=== PATIENT | male | born 1965 | race Caucasian/White ===

== ENCOUNTER 2017-06-11 17:21 | Emergency (ER) | payer SELFPAY ==
[~2017-06-11] VITALS: Ht 172.7 cm; Wt 60.0 kg
[2017-06-11 17:22] VITALS: BP 150/89; PULSE 83; RESP 18; TEMP 98.4; O2SAT 98
--- NOTE | 2017-06-11 18:00 | PD ---
Physical Exam Date Seen by Provider: Jun 11, 2017 Time Seen by Provider: 18:00 Narrative 52 year old male presents to the emergency department for evaluation of a dog bite to his left thigh that occurred around 2230 last night. Patient states the dog that attacked him lives where he does. It attacked his dog and then bit him. He reports pain 9/10. He denies any exacerbating or alleviating factors. Mild severity. Data Data Last Documented VS Vital Signs Date Time Temp Pulse Resp B/P (MAP) Pulse Ox O2 Delivery O2 Flow Rate FiO2 06/11/17 18:20 06/11/17 17:22 98.4 83 18 98 Room Air MDM Medical Record Reviewed: Yes Supervised Visit with ABBE: No Narrative Course 52 year old male presents to the emergency department for evaluation of a dog bite to his left thigh that occurred at 2230 last night. Patient was initially seen in triage. Patient was placed in the fast track area. However, before the provider in that area could see him, he became upset and left AMA. Diagnosis Primary Impression: Left against medical advice Additional Impression: Dog bite Qualified Codes: W54.0XXA - Bitten by dog, initial encounter Disposition: 07 AGAINST MEDICAL ADVICE Adry Dixon Jun 11, 2017 18:00
[2017-06-12] MEDS ORDERED: CEPH-460 PO (16:18)
[2017-06-12] MEDS ORDERED: PERC5TAB12 PO (16:19)
== END 2017-06-11 18:38 | disposition left against medical advice (07) ==
LOC: NEPK 17:21
DX: S71.152A Open bite, left thigh, initial encounter (principal); W54.0XXA Bitten by dog, initial encounter
CPT/HCPCS: 99281

== ENCOUNTER 2017-06-11 23:11 | Inpatient (IN) | payer SELFPAY ==
[~2017-06-11] VITALS: Ht 165.1 cm; Wt 65.0 kg
[2017-06-11 23:14] VITALS: BP 128/88; PULSE 76; RESP 16; TEMP 97.7; O2SAT 100
[2017-06-12] VITALS (8 sets, daily range): BP systolic 106–136; BP diastolic 68–88; PULSE 52–72; RESP 16–20; TEMP 97.8–98.1; O2SAT 98–100
[2017-06-12] MEDS ORDERED: PIPERACIL-TAZO 4.5 GM PREMIX 100 ML IV ONE (00:30)
[2017-06-12] MEDS ORDERED: MORPHINE SULFATE 2 MG/ML INJ IV PUSH ONE (00:30)
[2017-06-12 00:59] LABS: AUTOMATED NEUTROPHIL # 3.4 TH/MM3 (1.8-7.7); BASOPHIL % 0.2 % (0.0-2.0); EOSINOPHIL # 0.1 TH/MM3 (0-0.4); EOSINOPHIL % 2.5 % (0.0-4.0); HEMATOCRIT 39.2 % (39.0-51.0); HEMOGLOBIN 13.1 GM/DL (13.0-17.0); LYMPH % 24.4 % (9.0-44.0); LYMPHOCYTE # 1.3 TH/MM3 (1.0-4.8); MEAN CELL VOLUME 99.1 FL (80.0-100.0); MEAN CORPUSCULAR HEMOGLOBIN 33.1 PG (27.0-34.0); MEAN CORPUSCULAR HGB CONC 33.4 % (32.0-36.0); MEAN PLATELET VOLUME 7.4 FL (7.0-11.0); MONO % 9.5 % (0.0-8.0); MONOCYTE # 0.5 TH/MM3 (0-0.9); NEUT % 63.4 % (16.0-70.0); PLATELET COUNT 265 TH/MM3 (150-450); RED BLOOD COUNT 3.96 MIL/MM3 (4.50-5.90); RED CELL DISTRIBUTION WIDTH 16.4 % (11.6-17.2); WHITE BLOOD COUNT 5.3 TH/MM3 (4.0-11.0)
[2017-06-12 01:16] LABS: ALBUMIN 3.7 GM/DL (3.4-5.0); ALT (GPT) 33 U/L (12-78); AST (GOT) 34 U/L (15-37); BICARBONATE 25.6 MEQ/L (21.0-32.0); BLOOD UREA NITROGEN 19 MG/DL (7-18); CALCIUM 7.6 MG/DL (8.5-10.1); CHLORIDE 106 MEQ/L (98-107); CREATININE 0.87 MG/DL (0.60-1.30); GLOMERULAR FILTRATION RATE 92 ML/MIN (>89); GLUCOSE,RANDOM 89 MG/DL (74-106); SODIUM (NA) 139 MEQ/L (136-145)
[2017-06-12 01:18] LABS: ALKALINE PHOSPHATASE 73 U/L (45-117); TOTAL BILIRUBIN ADULT 0.4 MG/DL (0.2-1.0); TOTAL PROTEIN 6.2 GM/DL (6.4-8.2)
--- NOTE | 2017-06-12 01:26 | PD ---
HPI . Left thigh dog bite Chief Complaint: Bite or Sting Time Seen by Provider: 00:20 Travel History International Travel<30 days: No Contact w/Intl Traveler<30days: No Traveled to known affect area: No History of Present Illness HPI 52-year-old male status post dog bite earlier today in his left thigh, provoked , patient was breaking up a fight between his dog and another dog.. All. Odor was present stated that the dog has had his rabies and all immunizations are up- to-date. Patient had local neighbor glue the laceration, noted significant pain large amount of bleeding that appeared to be pulsatile. Patient applied pressure manually followed by a tight pressure bandage with improvement in bleeding. Patient states pain has worsened in the area since the laceration occurred several hours ago, earlier today. Denies any weakness numbness tingling distally. This is an isolated lesion. Patient's tetanus is up-to-date [facility] Past Medical History Narrative Medical Past medical history reviewed Immunizations Current: Yes Tetanus Vaccination: Unknown Influenza Vaccination: No Social History Alcohol Use: No Tobacco Use: Yes Substance Use: No Allergies-Medications (Allergen,Severity, Reaction): Coded Allergies: No Known Allergies (Unverified , 06/11/17) Reported Meds & Prescriptions Reported Meds & Active Scripts Active No Active Prescriptions or Reported Medications Narrative Medication Allergies and medications reviewed Review of Systems Except as stated in HPI: all other systems reviewed are Neg General / Constitutional: No: Fever Eyes: No: Visual changes HENT: No: Headaches Cardiovascular: No: Chest Pain or Discomfort Respiratory: No: Shortness of Breath Gastrointestinal: No: Abdominal Pain Genitourinary: No: Dysuria Musculoskeletal: Positive: Pain Skin: No Rash Neurologic: No: Weakness Psychiatric: No: Depression Endocrine: No: Polydipsia Hematologic/Lymphatic: No: Easy Bruising Physical Exam Narrative GENERAL: Awake alert oriented 3 uncomfortable but in no acute distress SKIN: Warm and dry. Color is normal no diaphoresis cyanosis or pallor HEAD: Atraumatic. Normocephalic. EYES: Pupils equal and round. No scleral icterus. No injection or drainage. ENT: No nasal bleeding or discharge. Mucous membranes pink and moist. NECK: Trachea midline. No JVD. CARDIOVASCULAR: Regular rate and rhythm. RESPIRATORY: No accessory muscle use. Clear to auscultation. Breath sounds equal bilaterally. GASTROINTESTINAL: Abdomen soft, non-tender, nondistended. Hepatic and splenic margins not palpable. MUSCULOSKELETAL: Left medial thigh along distribution of deep vascular structures a dog bite with surrounding tense mass, no pulsatile nature noted. Neurovascular intact distally NEUROLOGICAL: Awake and alert. No obvious cranial nerve deficits. Motor grossly within normal limits. Five out of 5 muscle strength in the arms and legs. Normal speech. PSYCHIATRIC: Appropriate mood and affect; insight and judgment normal. Data Data Last Documented VS Vital Signs Date Time Temp Pulse Resp B/P (MAP) Pulse Ox O2 Delivery O2 Flow Rate FiO2 06/12/17 00:44 65 16 133/78 (96) 98 Room Air 06/11/17 23:14 97.7 Orders Orders Iv Access Insert/Monitor (06/12/17 00:30) Cta Runoff W Iv Contrast W 3d (06/12/17 ) Complete Blood Count With Diff (06/12/17 00:30) Comprehensive Metabolic Panel (06/12/17 00:30) Morphine Inj (Morphine Inj) (06/12/17 00:30) Piperacil-Tazo 4.5 Gm Premix (Zosyn 4.5 (06/12/17 00:30) Iohexol 350 Inj (Omnipaque 350 Inj) (06/12/17 01:41) Type And Screen (06/12/17 01:42) Admit Order (Ed Use Only) (06/12/17 02:08) Labs Laboratory Tests Test 06/12/17 00:47 White Blood Count 5.3 TH/MM3 Red Blood Count 3.96 MIL/MM3 Hemoglobin 13.1 GM/DL Hematocrit 39.2 % Mean Corpuscular Volume 99.1 FL Mean Corpuscular Hemoglobin 33.1 PG Mean Corpuscular Hemoglobin Concent 33.4 % Red Cell Distribution Width 16.4 % Platelet Count 265 TH/MM3 Mean Platelet Volume 7.4 FL Neutrophils (%) (Auto) 63.4 % Lymphocytes (%) (Auto) 24.4 % Monocytes (%) (Auto) 9.5 % Eosinophils (%) (Auto) 2.5 % Basophils (%) (Auto) 0.2 % Neutrophils # (Auto) 3.4 TH/MM3 Lymphocytes # (Auto) 1.3 TH/MM3 Monocytes # (Auto) 0.5 TH/MM3 Eosinophils # (Auto) 0.1 TH/MM3 Basophils # (Auto) 0.0 TH/MM3 CBC Comment DIFF FINAL Differential Comment Blood Urea Nitrogen 19 MG/DL Creatinine 0.87 MG/DL Random Glucose 89 MG/DL Total Protein 6.2 GM/DL Albumin 3.7 GM/DL Calcium Level 7.6 MG/DL Alkaline Phosphatase 73 U/L Aspartate Amino Transf (AST/SGOT) 34 U/L Alanine Aminotransferase (ALT/SGPT) 33 U/L Total Bilirubin 0.4 MG/DL Sodium Level 139 MEQ/L Potassium Level 4.1 MEQ/L Chloride Level 106 MEQ/L Carbon Dioxide Level 25.6 MEQ/L Anion Gap 7 MEQ/L Estimat Glomerular Filtration Rate 92 ML/MIN [facility] Medical Decision Making Medical Screen Exam Complete: Yes Emergency Medical Condition: Yes Medical Record Reviewed: Yes Differential Diagnosis Dogbite left thigh, acute T vascular injury, laceration Narrative Course CTA with runoffs left lower extremity significant for possible left femoral artery injury with extravasation of contrast from the deep femoral vein to superficial wound. Case discussed with Dr. Lima vascular surgeon, patient admitted with compression dressing for evaluation. Diagnosis Primary Impression: Dog bite of thigh Qualified Codes: S71.152D - Open bite, left thigh, subsequent encounter; W54.0XXD - Bitten by dog, subsequent encounter Additional Impression: Injury of femoral artery Qualified Codes: S75.002D - Unspecified injury of femoral artery, left leg, subsequent encounter Admitting Information Admitting Physician Requests: Admit Scripts No Active Prescriptions or Reported Meds Condition: Bigg Prieto MD Jun 12, 2017 01:26
[2017-06-12] MEDS ORDERED: IOHEXOL 350 MG/ML 10 ML VIAL (for RAD DIAG) IVCONTRAST ONE (01:41)
--- NOTE | 2017-06-12 02:45 | RADRPT ---
EXAM DATE/TIME: 06/12/2017 01:17 [facility] COMPARISON: No previous studies available for comparison. INDICATIONS : Dog bite to medial left thigh, evaluate arterial/vascular involvement. IV CONTRAST: 100 cc Omnipaque 350 (iohexol) IV RADIATION DOSE: 2.03 CTDIvol (mGy) MEDICAL HISTORY : None SURGICAL HISTORY : None. ENCOUNTER: Initial ACUITY: 1 day PAIN SCALE: 10/10 LOCATION: Left medial femur TECHNIQUE: Volumetric scanning was performed using a multi-row detector CT scanner. The data was post processed with a variety of visualization algorithms including full volume maximum intensity projection, multi -planar sliding thin slab reformation, curved planar reformation, and surface rendering techniques. Using automated exposure control and adjustment of the mA and/or kV according to patient size, radiat ion dose was kept as low as reasonably achievable to obtain optimal diagnostic quality images. DICO M format image data is available electronically for review and comparison. FINDINGS: ABDOMINAL AORTA: There is some atherosclerotic plaquing throughout the abdominal aorta. There is no evidence of any an eurysmal dilatation. There is no aortic dissection. The celiac artery is patent. There is some focal calcified plaque at the origin of the SMA. However, no focal stenosis is demonstrated. The renal magdy raphael are patent bilaterally. The HI is patent. BIFURCATION: There is atherosclerotic plaquing at the aortic bifurcation RIGHT PELVIS: There is atherosclerotic plaquing involving the common iliac artery without any high-grade stenosis. The external iliac artery is patent. LEFT PELVIS: There is atherosclerotic plaquing involving the common iliac artery without any high-grade stenosis. The external iliac artery is patent. RIGHT THIGH: The superficial femoral and profunda vessels are patent.. LEFT THIGH: The superficial femoral and profunda vessels are patent.. RIGHT KNEE: The distal femoral and popliteal arteries are patent without luminal irregularity. LEFT KNEE: The distal femoral and popliteal arteries are patent without luminal irregularity. RIGHT LEG: The trifurcation is intact. LEFT LEG: The trifurcation is intact. CONCLUSION: 1. There is atherosclerotic plaquing throughout the abdominal aorta. No aneurysmal dilatation. 2. There is atherosclerotic plaquing at the aortic bifurcation with calcified plaques along both comm on iliac arteries. However, no focal high-grade stenosis. 3. Good runoff down both extremities. Rubén Mendiola MD on June 12, 2017 at 2:36 Board Certified Radiologist. This report was verified electronically.
[2017-06-12] MEDS ORDERED: SODIUM CHLOR 0.9% 1000 ML INJ 1,000 ML IV SCH ×2 (09:00→10:52)
[2017-06-12] MEDS ORDERED: AMPICILLIN-SULBACTAM INJ 3 GM in SODIUM CHLORIDE 0.9% INJ 100 ML IV SCH (09:00)
[2017-06-12] MEDS ORDERED: NALOXONE HCL 0.4 MG/ML AMP IV PUSH PRN (11:00)
[2017-06-12] MEDS ORDERED: MORPHINE SULFATE 2 MG/ML INJ IV PUSH PRN (11:00)
[2017-06-12] MEDS ORDERED: SODIUM CHLORIDE 0.9% FLUSH 10 ML FLUSH IV FLUSH PRN (11:00)
[2017-06-12] MEDS ORDERED: Post-op Orders (for Pharmacy) XX ONE (11:00)
[2017-06-12] MEDS ORDERED: ONDANSETRON HCL 4 MG/2 ML VIAL IV PUSH PRN (11:00)
--- NOTE | 2017-06-12 11:27 | MH ---
cc: HERIBERTO ETIENNE MD DATE OF ADMISSION 06/12/2017 ADMITTING PHYSICIAN Heriberto Etienne MD, Vascular Surgery REASON FOR ADMISSION Laceration of the left femoral artery after a dog bite. HISTORY OF PRESENT DISEASE This 52-year-old male was bitten on the left thigh about two days ago after trying to break up fights between the dog's. Allegedly, the dog that bit him had rabies immunization. He did not do much to the wound, but glued it shut for some reason and then suddenly it become red and started bleeding. The patient then came to the emergency room with a bleeding wound. The patient is now admitted for further care and repair of the lacerated femoral artery. PAST MEDICAL HISTORY The patient denies. PAST SURGICAL HISTORY Denies. SOCIAL HISTORY He smokes a pack a day. He states he does not drink. PHYSICAL EXAM Physical examination reveals a 52-year-old male. HEAD, EYES, EARS, NOSE, AND THROAT: Normocephalic. No trauma to the head. Pupils equally reactive. Extraocular muscles intact. NECK: Supple, bilateral carotid pulses. No bruits. CHEST: Clear, bilateral breath sounds. HEART: Regular rhythm. ABDOMEN: Soft. Active bowel sounds. EXTREMITIES: The patient has bilateral femoral, popliteal, dorsalis, and pedis posterior tibial pulses left and right. He has a bandage on the left thigh and he has an excellent popliteal pulse underneath that. The bandage is dry. This will be removed in the operating room. I discussed it with the ER physician as far as the findings are concerned. NEUROLOGIC: Exam reveals the patient has a Mone coma scale of 15 with preserved neurologic exam. The patient underwent CTA which reveals bleeding. ASSESSMENT AND PLAN He will be admitted and will undergo exploration of the wound with possible repair of the tissues but I doubt any injury to the femoral artery. Heriberto CROSS/KEMIL /10:55 AM /11:16 AM [facility] HOSPITALNeymar
[2017-06-12] MEDS ORDERED: LACTATED RINGER'S 1000 ML INJ 1,000 ML IV ONE (12:00)
[2017-06-12] MEDS ORDERED: ROCURONIUM INJ 50 MG/5 ML SYRINGE IV PUSH ONE (12:00)
[2017-06-12] MEDS ORDERED: LIDOCAINE HCL 1% PF 5 ML SYRINGE OTHER ONE (12:00)
[2017-06-12] MEDS ORDERED: PROPOFOL 200 MG/20 ML AMP IV ONE (12:00)
[2017-06-12] MEDS ORDERED: HEPARIN SODIUM - IV 10,000 UNITS/10 ML VIAL ONE (12:27)
[2017-06-12] MEDS ORDERED: LIDOCAINE 0.5%/EPINEPHrine 1:200,000 SOLN 50 ML VIAL ONE (12:27)
[2017-06-12] MEDS ORDERED: ceFAZolin 2 GM PREMIX 50 ML ONE (14:20)
[2017-06-12] MEDS ORDERED: CHLORHEXIDINE GLUCONATE 2 % 1 PACK (2 CLOTHS) TOPICAL PRN (15:15)
[2017-06-12] MEDS ORDERED: METOPROLOL TARTRATE 25 MG TAB PO PRN (15:15)
[2017-06-12] MEDS ORDERED: LACTATED RINGER'S 1000 ML IV PRN (15:15)
[2017-06-12] MEDS ORDERED: POVIDONE IODINE 5% (ANTISEPSIS KIT) 4 APPLICATIONS EACH NARE PRN (15:15)
[2017-06-12] MEDS ORDERED: SODIUM CHLORID 0.9% 500 ML IV PRN (15:15)
[2017-06-12] MEDS ORDERED: SUGAMMADEX SODIUM 200 MG/2 ML VIAL IV PUSH ONE (16:13)
[2017-06-12] MEDS ORDERED: CEPH-460 PO (16:18)
[2017-06-12] MEDS ORDERED: PERC5TAB12 PO (16:19)
[2017-06-12] MEDS ORDERED: DO NOT ADM ANY ANTICOAGULANT DRUGS PRN (16:26)
[2017-06-12] MEDS ORDERED: *morphine SULFATE 4 MG/ML PERIprocedure ONLY ONE (16:53)
[2017-06-12] MEDS ORDERED: ONDANSETRON HCL 4 MG/2 ML VIAL IV PUSH ONE (17:30)
[2017-06-12] MEDS ORDERED: oxyCODONE/ACETAMINOPHEN 5 MG/325 MG TAB PO ONE (17:30)
[2017-06-12] MEDS ORDERED: VANCOMYCIN INJ 1,000 MG in SODIUM CHLOR 0.9% 250 ML INJ 250 ML IV SCH (18:00)
[2017-06-12] MEDS ORDERED: CLINDAMYCIN INJ 600 MG in SODIUM CHLORIDE 0.9% INJ 50 ML IV SCH (20:00)
[2017-06-12] MEDS ORDERED: SODIUM CHLORIDE 0.9% FLUSH 10 ML FLUSH IV FLUSH SCH (21:00)
[2017-06-12] MEDS ORDERED: FAMOTIDINE 20 MG TAB PO SCH (21:00)
--- NOTE | 2017-06-13 07:06 | HHI.DS ---
Discharge Summary Admission Date Jun 12, 2017 at 10:56 Discharge Date: Jun 12, 2017 Admitting Diagnosis Dog bite w/ vascular injury L thigh (1) Dog bite of thigh ICD Codes: S71.159A - Open bite, unspecified thigh, initial encounter; W54.0XXA - Bitten by dog, initial encounter Status: Acute (2) Injury of femoral artery ICD Codes: S75.009A - Unspecified injury of femoral artery, unspecified leg, initial encounter Status: Acute Brief History S/P Trauma: dog bite CBC/BMP: 06/12/17 0047 06/12/17 0047 Significant Findings Laboratory Tests Test 06/12/17 00:47 Red Blood Count 3.96 MIL/MM3 (4.50-5.90) Monocytes (%) (Auto) 9.5 % (0.0-8.0) Blood Urea Nitrogen 19 MG/DL (7-18) Total Protein 6.2 GM/DL (6.4-8.2) Calcium Level 7.6 MG/DL (8.5-10.1) Imaging Last Impressions Aorta w/Runoff CTA 06/12/17 0000 Signed Impressions: Service Date/Time: Monday, June 12, 2017 01:17 - CONCLUSION: 1. There is atherosclerotic plaquing throughout the abdominal aorta. No aneurysmal dilatation. 2. There is atherosclerotic plaquing at the aortic bifurcation with calcified plaques along both common iliac arteries. However, no focal high- grade stenosis. 3. Good runoff down both extremities. Rubén Mendiola MD PE at Discharge GENERAL: 52 year old adult male lying in bed in no acute distress. SKIN: Warm and dry. HEAD: Normocephalic MUSCULOSKELETAL: Extremities without , cyanosis, or edema. LEFT thigh with surgical dressing C/D/I. MAEW, + dorsalis pedis pulses bilaterally, well perfused. NEUROLOGICAL: Awake and alert. Normal speech. Hospital Course [place]: Patient reportedly was bitten by a dog in his left thigh prior to arrival. Attempts at gluing the wound closed were unsuccessful and patient came to ER after the bleeding would not stop. No LOC. INJURIES: LEFT thigh laceration with femoral artery lac PMHx: Tobacco use LEFT thigh laceration with femoral artery lac 06/12: Debridement of left thigh wound and femoral artery repair Wound care: Remove dressing Thursday and wash incision with soap and water. May cover with dry dressing and change daily or leave open to air Pain control Keflex x 10 days Tetanus UTD F/U with Trauma/vascular office in 2 weeks No work until cleared by Dr Lima F/U with PCP in 1 week Patient is clear from Trauma surgery standpoint to safely discharge home. Pt Condition on Discharge: Good Discharge Disposition: Discharge Home Discharge Instructions DIET: Follow Instructions for: As Tolerated, No Restrictions Activities you can perform: Regular-No Restrictions Other Activity Instructions: Patient is not to return to work until he sees me in the office Rissa Elizondo Jun 13, 2017 07:06
--- NOTE | 2017-06-13 14:23 | MP ---
cc: MATT ETIENNE MD DATE OF SURGERY 06/12/2017 PREOPERATIVE DIAGNOSIS Dog bite to the left leg. Injury to the branches of the superficial femoral artery. POSTOPERATIVE DIAGNOSIS Dog bite to the left leg. Injury to the branches of the superficial femoral artery. OPERATIVE PROCEDURE Exploration of the wound, debridement of the wound, ligation of small bleeders and washout with approximation of the wound. SURGEON MD Yudi ANESTHESIA General. ESTIMATED BLOOD LOSS 20 cc. PROCEDURE The patient is prepped and draped in the usual fashion. The wound is now explored. The left medial aspect of the leg has a wound which measures about 2-1/2 to 3 inches in length. This really does not appear to be wound from a dog bite, looks more like a cut. The wound is now debrided by sharply removing with 15 blade the involved skin, about 4 mm laterally and then turning into a fishmouth shape. A large amount of clotted material is removed but there is no major vascular injury. There are several small bleeders which are ligated with 2-0 Vicryl stick ties and also with some cauterization. The area is now irrigated with copious amounts of saline, pulses checked and then skin was approximated with 2-0 Prolene interrupted stitches allowing some drainage. Dressing applied. It should be noted the patient does not have injury to major arteries in the leg but simply branches of arteries and veins. Matt CROSS/BRIGITTE /4:23 PM /2:04 PM
--- NOTE | 2017-06-13 15:27 | EKG ---
Date Performed: 06/12/2017 Time Performed: 13:26:29 PTAGE: 52 years EKG: SINUS BRADYCARDIA BORDERLINE ECG NO PREVIOUS TRACING DOCTOR: Beto Shay Interpretating Date/Time 06/13/2017 15:26:55
== END 2017-06-12 17:39 | disposition home or self-care (01) | DRG 579 ==
LOC: NEPE 23:11 → NEDA 06-12 02:10 → NEDH 06-12 08:24 → OBSVTOIN 06-12 10:56
PROVIDERS: ADMIT Surgery; ATTEND Surgery
PROC: 0HBJXZZ Excision of Left Upper Leg Skin, External Approach (ICD-10-PCS; 2017-06-12)
PROC: 0Y3D0ZZ Control Bleeding in Left Upper Leg, Open Approach (ICD-10-PCS; principal; 2017-06-12 15:18)
DX: S71.152A Open bite, left thigh, initial encounter (principal); S75.012A Minor laceration of femoral artery, left leg, initial encounter; W54.0XXA Bitten by dog, initial encounter; F17.210 Nicotine dependence, cigarettes, uncomplicated
CPT/HCPCS: 75635; 80053; 85025; 86850; 86900; 86901; 93005; 96365; 96375; J0295; J0690; J1644; J2270; J2543; J3010; J7030; J7120; Q9967

== ENCOUNTER 2017-06-25 08:24 | Emergency (ER) | payer SELFPAY ==
[~2017-06-25] VITALS: Ht 172.7 cm; Wt 60.0 kg
[~2017-06-25 08:24] MED LIST: CEPH-460 PO; PERC5TAB12 PO
[2017-06-25 08:28] VITALS: BP 133/84; PULSE 86; RESP 14; TEMP 97.6; O2SAT 99
--- NOTE | 2017-06-25 09:30 | PD ---
HPI Chief Complaint: Skin Problem Time Seen by Provider: 09:07 Travel History International Travel<30 days: No Contact w/Intl Traveler<30days: No Traveled to known affect area: No History of Present Illness HPI This is a 52-year-old male who presents to the emergency department having increasing discoloration of his left leg. 2 weeks ago the patient had a dog bite to the left medial thigh. He had a femoral artery injury which was repaired by Dr. Zhao. He returns today to have his sutures removed. He says that one suture burst open. He also is concerned because he is having a lot of discoloration of his leg and he thought it was turning black. He's had no coolness, numbness, or weakness of the leg. The leg does feel sore. PFSH Past Medical History Immunizations Current: Yes Social History Alcohol Use: No Tobacco Use: Yes Substance Use: No Allergies-Medications (Allergen,Severity, Reaction): Coded Allergies: No Known Allergies (Unverified , 06/11/17) Reported Meds & Prescriptions Reported Meds & Active Scripts Active Percocet (Oxycodone-Acetaminophen) 5-325 mg Tab 1 Tab PO Q6H PRN Keflex (Cephalexin) 500 Mg Cap 500 Mg PO Q8H Review of Systems General / Constitutional: No: Fever, Chills Gastrointestinal: No: Nausea, Vomiting Physical Exam Narrative GENERAL: Well-appearing, no acute distress, nontoxic SKIN: 4 cm laceration to the left medial thigh with sutures in place, moist with some clear drainage and minimal around the wound. Patient has ecchymoses from the posterior left thigh extending down into the calf. Vascular: 2+ left DP pulse, leg is warm and well perfused. HEAD: Atraumatic. Normocephalic. ENT: No nasal bleeding or discharge. Moist mucous membranes MUSCULOSKELETAL: No obvious deformities. NEUROLOGICAL: Awake and alert. No obvious cranial nerve deficits. Motor grossly within normal limits. Normal speech. PSYCHIATRIC: Appropriate mood and affect; insight and judgment normal. Data Data Last Documented VS Vital Signs Date Time Temp Pulse Resp B/P (MAP) Pulse Ox O2 Delivery O2 Flow Rate FiO2 06/25/17 08:28 97.6 86 14 133/84 (100) 99 MDM Medical Decision Making Medical Screen Exam Complete: Yes Emergency Medical Condition: Yes Differential Diagnosis Dog bite, wound infection, limb ischemia, vascular injury Narrative Course This is a 52-year-old male who presents to the emergency department having sustained a dog bite to his left medial thigh resulting in a femoral artery injury which was repaired by Dr. Zhao 2 weeks ago. Patient's wound has been healing well with no evidence of wound infection. He presents today to have his sutures out. To me the wound still appears somewhat moist and has some serous drainage from the center. I don't think suture removal right now is prudent. He probably would benefit from several more days of sutures and I think he needs to follow up with Dr. Zhao in clinic. The color changes he is concerned about in his leg are ecchymoses. He has a normal neurovascular exam and no evidence of limb ischemia. Diagnosis Primary Impression: Visit for wound check Referrals: Matt Bagley MD call for appointment Patient Instructions: General Instructions Additional Instructions: If you develop worsening redness, warmth, or pus coming from your wound or fevers or chills return to the emergency department. Follow up with Dr. Zhao in clinic early next week. Med/Other Pt SpecificInfo: No Change to Meds Disposition: 01 DISCHARGE HOME Condition: Stable Hanna Cortez MD Jun 25, 2017 09:30
== END 2017-06-25 09:45 | disposition home or self-care (01) ==
LOC: NEPD 08:24
DX: Z48.00 Encounter for change or removal of nonsurgical wound dressing (principal)
CPT/HCPCS: 99281

== ENCOUNTER 2017-08-05 14:21 | Emergency (ER) | payer OTHER ==
[2017-08-05] MEDS ORDERED: CEPH-460 PO (17:35)
== END 2017-08-05 14:36 | disposition left against medical advice (07) ==
LOC: NED 14:21
DX: Z53.21 Procedure and treatment not carried out due to patient leaving prior to being seen by health care provider (principal)
CPT/HCPCS: 99281

== ENCOUNTER 2017-08-05 15:05 | Emergency (ER) | payer OTHER ==
[~2017-08-05] VITALS: Ht 172.7 cm; Wt 60.2 kg
[2017-08-05 15:14] VITALS: BP 133/77; PULSE 85; RESP 18; TEMP 98.1; O2SAT 98
--- NOTE | 2017-08-05 15:51 | RADRPT ---
EXAM DATE/TIME: 08/05/2017 15:34 [facility] COMPARISON: No previous studies available for comparison. INDICATIONS : Laceration to anterior surface of left second digit today MEDICAL HISTORY : None. SURGICAL HISTORY : None. ENCOUNTER: Initial ACUITY: 1 day PAIN SCORE: 5/10 LOCATION: Left anterior 2nd digit FINDINGS: Three view examination of the left hand demonstrates no soft tissue swelling, dislocation, or fractur e. The carpal bones appear intact. The interphalangeal and metacarpophalangeal joints are intact. Bony mineralization is normal. Bandage is present over laceration. CONCLUSION: Laceration second digit without fracture or foreign body.. Anastacio Pierson MD FACR on August 05, 2017 at 15:46 Board Certified Radiologist. This report was verified electronically.
--- NOTE | 2017-08-05 16:47 | PD ---
HPI Chief Complaint: Injury Time Seen by Provider: 15:45 Travel History International Travel<30 days: No Contact w/Intl Traveler<30days: No Traveled to known affect area: No History of Present Illness HPI 52-year-old male here with a laceration to left index finger caused by a pole saw trimming trees at work. He reports the sole fell cutting his left hand. He reports his index finger was unable to fully extend the finger after the laceration. He denies paresthesia of the finger. Tetanus immunization is up-to -date. No known drug allergies. No past medical history. Last by mouth intake 12:00 PM. PFSH Past Medical History Medical History: Denies Significant Hx Immunizations Current: Yes Social History Alcohol Use: No Tobacco Use: Yes Substance Use: No Allergies-Medications (Allergen,Severity, Reaction): Coded Allergies: No Known Allergies (Unverified , 08/05/17) Reported Meds & Prescriptions Reported Meds & Active Scripts Active Keflex (Cephalexin) 500 Mg Cap 500 Mg PO Q6H 7 Days Review of Systems Except as stated in HPI: all other systems reviewed are Neg Physical Exam Narrative GENERAL: Alert well-appearing 52-year-old male SKIN: Warm and dry. Laceration to the left index finger over the PIP joint. HEAD: Normocephalic. EYES: No injection or drainage. NECK: Supple CARDIOVASCULAR: Regular rate and rhythm RESPIRATORY: Breath sounds equal bilaterally. No accessory muscle use. MUSCULOSKELETAL: No cyanosis, or edema. Left hand: 1.5 centimeter laceration over the PIP joint of the left index finger. Patient is unable to fully extend the finger. Normal sensation distally. Brisk cap refill. Data Data Last Documented VS Vital Signs Date Time Temp Pulse Resp B/P (MAP) Pulse Ox O2 Delivery O2 Flow Rate FiO2 08/05/17 15:14 98.1 85 18 133/77 (95) 98 Orders Orders Hand, Complete ([id number]) (08/05/17 ) Basic Metabolic Panel (Bmp) (08/05/17 16:50) Complete Blood Count With Diff (08/05/17 16:50) Prothrombin Time / Inr (Pt) (08/05/17 16:50) Act Partial Throm Time (Ptt) (08/05/17 16:50) Iv Access Insert/Monitor (08/05/17 16:50) Cefazolin 2 Gm Premix (Ancef 2 Gm Premix (08/05/17 17:00) MDM Medical Decision Making Medical Screen Exam Complete: Yes Emergency Medical Condition: Yes Differential Diagnosis Extensor Tendon laceration, finger laceration, finger fracture Narrative Course 52 year-old male here with a laceration to the left index finger. Extensor tendon lack is suspected. The digit is neurovascularly intact. Case was discussed with Dr. Pineda on-call hand surgeon. She requests patient have primary closure and IV antibiotics in the ER. She will see the patient as an outpatient in her office this week. She'll be discharged home on Keflex and finger splint applied. Importance of follow-up with hand surgeon Dr. Pineda for tendon repair was discussed at length with patient. He verbalizes understanding and agrees to plan Procedures Procedure Narrative LACERATION LOCATION: Left index finger over the PIP joint LENGTH:2 Centimeter NUMBER OF STITCHES/HI: 6 REPAIR: The area of the laceration was prepped with Betadine and sterilely draped. Digital block using 1% lidocaine. The wound was copiously irrigated and explored without evidence of foreign body, tendon injury or neurovascular injury. The wound was closed using 4-0 Ethilon. This was a SINGLE layer repair. A sterile dressing was applied. The patient was advised to keep the dressing clean and dry. Patient tolerated the procedure well. Diagnosis Primary Impression: Extensor tendon laceration, finger, open wound Qualified Codes: S66.529A - Laceration of intrinsic muscle, fascia and tendon of unspecified finger at wrist and hand level, initial encounter; S61.209A - Unspecified open wound of unspecified finger without damage to nail, initial encounter Referrals: Susana Pineda MD Departure Forms: Tests/Procedures, Work Release Special Instructions: Needs to be cleared by hand surgeon to return to work Additional Instructions: Call tomorrow morning to schedule a follow-up appointment with Dr. Pineda he spoke with Katie Aguilar WEIGHT TRAINING INSTRUCTOR regarding your case Antibiotics as instructed. Tylenol or ibuprofen for pain. Wear the finger splint directed Scripts Cephalexin (Keflex) 500 Mg Cap 500 MG PO Q6H for Infection for 7 Days, #28 CAP 0 Refills Prov: Katie Aguilar 08/05/17 Disposition: 01 DISCHARGE HOME Condition: Stable Katie Aguilar Aug 05, 2017 16:47
[2017-08-05] MEDS ORDERED: ceFAZolin 2 GM PREMIX 50 ML IV ONE (17:00)
[2017-08-05] MEDS ORDERED: CEPH-460 PO (17:35)
== END 2017-08-05 18:28 | disposition home or self-care (01) ==
LOC: PHEFT 15:05
DX: S66.321A Laceration of extensor muscle, fascia and tendon of left index finger at wrist and hand level, initial encounter (principal); W27.8XXA Contact with other nonpowered hand tool, initial encounter; Y93.H2 Activity, gardening and landscaping; Y99.0 Civilian activity done for income or pay; Z72.0 Tobacco use
CPT/HCPCS: 12001; 73130; 96374; 99284; J0690